=== PATIENT | male | born 1965 | race Two or more races ===

== ENCOUNTER 2022-04-04 09:03 | Emergency (ER) | payer OTHER, SELFPAY ==
[2022-04-04 09:07] VITALS: BP 170/110; PULSE 98; RESP 18; TEMP 36.9; O2SAT 98; BMI 25.0
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
== END 2022-04-04 10:00 | disposition home or self-care (01) ==
PROVIDERS: Emergency Provider Student in an Organized Health Care Education/Training Program
DX: K08.89 Other specified disorders of teeth and supporting structures (principal); K02.9 Dental caries, unspecified; K08.539 Fractured dental restorative material, unspecified
CPT/HCPCS: 99282; 99283

== ENCOUNTER 2022-12-28 10:43 | Emergency (ER) | payer SELFPAY ==
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
[2022-12-28 11:54] VITALS: BP 168/107; PULSE 80; RESP 20; TEMP 36.3; O2SAT 97; BMI 27.1
[2022-12-28 14:51] VITALS: BP 174/101; PULSE 73; RESP 18; TEMP 36.6; O2SAT 96
[2022-12-28 15:39] VITALS: BP 173/110; PULSE 82; RESP 18; TEMP 36.9; O2SAT 97
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
== END 2022-12-28 16:44 | disposition home or self-care (01) ==
PROVIDERS: Emergency Provider Emergency Medicine; PCP Physician Assistant
DX: S46.912A Strain of unspecified muscle, fascia and tendon at shoulder and upper arm level, left arm, initial encounter (principal); V43.52XA Car driver injured in collision with other type car in traffic accident, initial encounter; Y93.89 Activity, other specified; Y92.414 Local residential or business street as the place of occurrence of the external cause; Y99.9 Unspecified external cause status
CPT/HCPCS: 73030; 99282; 99283